=== PATIENT | male | born 1955 | race Caucasian/White ===

== ENCOUNTER 2020-06-26 12:54 | Emergency (ER) | payer SELFPAY ==
--- NOTE | 2020-06-26 12:56 | XR_ITS ---
WS: [id number] XR chest 1V portable [id number] REASON FOR EXAM: cehst pain FINDINGS: The heart and mediastinum are within normal limits. No active pulmonary parenchymal or pleural disease is noted. There is blunting of the right costophrenic angle with flattening of the left hemidiaphragmatic conto ur. The bony thorax is intact. XR/XR chest 1V portable [id number] IMPRESSION: No acute chest abnormality is identified. The blunted right costophrenic angle with flattening of the left hemidiaphragm is felt to be chronic.
--- NOTE | 2020-06-26 12:57 | ECG_ITS ---
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 Measurements Intervals [place] Rate: 76 P: 75 CO: 205 QRS: 194 QRSD: 134 T: 60 QT: 406 QTc: 459 Interpretive Statements SINUS RHYTHM WITH OCCASIONAL SUPRAVENTRICULAR PREMATURE COMPLEXES MARKED RIGHT AXIS DEVIATION [QRS AXIS > 100] RIGHT BUNDLE BRANCH BLOCK [120+ ms QRS DURATION, UPRIGHT V1, 40+ ms S IN I/aVL/V4/V5/V6] No previous ECG available for comparison Electronically Signed On 06-26-2020 20:55:34 CDT by Idris Davidson M.D. [id number]
[2020-06-26 13:23] VITALS: BP 128/91; PULSE 77; RESP 16; TEMP 36.4; O2SAT 98; BMI 21.9
[2020-06-26 13:27] LABS: Basophils # 0.1 10^3/uL (0.0-0.1); Eosinophils # 0.4 10^3/uL (0.0-0.8); Eosinophils % 5.3 %; Hemoglobin 14.8 g/dL (11.7-16.6); Lymphocytes # 2.2 10^3/uL (0.8-4.8); Lymphocytes % 33.7 %; Mean Corpuscular HGB Conc 33.6 g/dL (30.0-36.0); Mean Corpuscular Hemoglobin 32.7 pg (28.0-34.0); Mean Corpuscular Volume 97.3 fL (80-94); Mean Platelet Volume 10.6 fL (7.4-10.4); Monocytes # 0.7 10^3/uL (0.2-0.9); Monocytes % 10.2 %; Neutrophils # 3.19 10^3/uL (1.8-7.7); Neutrophils % 47.9 %; Nucleated Red Blood Cells % 0 %; Platelet Count 236 10^3/cmm (130-400); Red Blood Count 4.52 10^6/uL (4.1-5.3); Red Cell Distribution Width 16.5 % (12.1-15.1); White Blood Count 6.7 10^3/uL (4.0-10.0)
[2020-06-26 14:30] LABS: Alanine Aminotransferase 19 U/L (0-41); Albumin Level 4.9 g/dL (3.5-5.2); Alkaline Phosphatase 62 IU/L (40-130); Aspartate Amino Transferase 22 U/L (0-40); Blood Urea Nitrogen 14 mg/dL (8-23); Calcium 9.7 mg/dL (8.5-10.5); Carbon Dioxide 25 mmol/L (22-29); Chloride 96 mmol/L (98-107); Globulin 2.8 g/dL (1.3-4.6); Glomerular Filtration Rate 75.5 mL/min (90-130); Glucose 101 mg/dL (65-115); Osmolality Calculated 279 mOsm/kg (285-295); Sodium 134 mmol/L (136-145); Total Bilirubin 0.6 mg/dL (0.15-1.2); Total Protein 7.7 g/dL (6.6-8.7); Troponin(5th) Baseline 104 ng/L (0-15)
[2020-06-26 14:31] LABS: Anion Gap 17.6 (5-19); Potassium 4.6 mmol/L (3.5-5.1)
--- NOTE | 2020-06-26 16:41 | W.ED.CHESTPA ---
HPI - Chest Pain General: Chief Complaint: Chest Pain Stated Complaint: cp Time Seen by Provider: 06/26/20 13:25 History of Present Illness: HPI narrative: This patient is a 65-year-old male who presents with an episode of chest pain. He said it started about 1230 and lasted about 20 to 30 minutes. On my evaluation he is pain-free. He said that he believes he had a heart attack. He thinks he may have had heart attacks before but is never sought medical attention. He denies medical history but also has not seen a doctor in a long time. He smokes several packs a day. He is not sure if he is ever been told he had high blood pressure high cholesterol. He is not sure about his family history. MD complaint: chest pain Pertinent past history: coronary artery disease Onset (ago): hour(s) (1) Timing of current episode: constant Onset: during rest Pain location: substernal and left chest Pain radiation: left arm Severity: severe Quality: aching and heaviness Relieving factors: nothing Exacerbating factors: nothing Associated symptoms: Reports diaphoresis and dyspnea; Deny abdominal pain, nausea or vomiting Review of Systems General: Reports: 10 or more systems reviewed and unremarkable except in HPI and below Const: Reports: diaphoresis Eyes: Denies: change in vision ENMT: Denies: odynophagia Card: Reports: chest pain; Denies: swelling of feet/ankles Resp: Reports: dyspnea GI: Denies: abdominal pain, nausea or vomiting : Denies: flank pain Musc: Denies: neck pain or back pain Skin/Breast: Denies: rash Neuro: Denies: headache(s), numbness in extremities or weakness in extremities Jeffrey/Lymph: Denies: easy bruising or easy bleeding [facility] ED PFSH: Social History Smoking and tobacco status: heavy tobacco smoker cigarettes Packs smoked per day: 1 Alcohol intake: never Substance/Drug Use: current Substance/Drug use frequency: daily Substance/Drug use type: Marijuana Physical Exam Const: COMMON NORMALS: no acute distress, patient oriented x3, no limitations and alert GENERAL APPEARANCE: cooperative and comfortable HENMT: HEAD & SCALP: normal to inspection FACE & SINUS: normal facial exam Eye: GENERAL EYE: appearance normal, both eyes and all related structures Neck/C-Spine: COMMON NORMALS: supple, no meningeal signs and no JVD Chest: COMMONS NORMALS: normal inspection of the chest Resp: COMMON NORMALS: normal respiratory effort, No use of accessory muscles and clear to auscultation bilaterally AUSCULTATION: clear to auscultation bilaterally Cardio: COMMON NORMALS: no JVD, regular rate, regular rhythm and No murmurs present (Cardio) RATE: regular rate RHYTHM: regular rhythm GI: COMMON NORMALS: Normal to inspection, nondistended, normoactive bowel sounds present, Soft to palpation and non-tender INSPECTION: Yes normal to inspection AUSCULTATION: Yes normoactive bowel sounds PALPATION: Yes Soft to palpation Back/Pelvis: COMMON NORMALS: thoracic and lumbar spine normal to inspection Extremity: COMMON NORMALS: normal to inspection Neuro: COMMON NORMALS: patient oriented x3, moves all extremities, no focal motor deficits and no sensory deficits noted SENSORIUM/ORIENTATION: Yes alert MENINGEAL SIGNS: Yes no meningeal signs Psych: COMMON NORMALS: mental status grossly normal, cooperative and normal affect Skin: COMMON NORMALS: no rashes or lesions noted and turgor normal GENERAL SKIN EXAM: no rashes or lesions noted and turgor normal Course ED course: Patient with a right bundle branch block on his EKG. There is no obvious acute ischemia. It is a concerning EKG however. His initial troponin was elevated over 100. His second troponin was over 200. Soon as I had evaluated the patient, he told me that he was not staying in the hospital. He agreed to wait for the work-up. When I went back and talked to him about the troponin elevation he expressed understanding that I was telling him he had had a heart damage and a heart attack. He understands that he needs to have a cardiac cath and have his arteries cleaned out . He refuses to stay in the hospital tonight. I explained to him that he is at high risk for sudden because of his recent MO. He understands that and is willing to accept that risk. I spent quite some time discussing this with him and he is steadfast that he will not stay in the hospital. He does request that I give him referral to the dispatcher service chief so that he can have a cath. He also says that he is going to stop smoking. He volunteered that on his own. He also agreed to take an aspirin daily. He understands that he is welcome to return to the ED at any time if he wishes to have further treatment. He also understands to return immediately if he has more chest pain. Vital Signs: Vital signs: Vital Signs Temperature 97.5 F L 06/26/20 13:23 Pulse Rate 77 06/26/20 13:23 Respiratory Rate 16 06/26/20 13:23 Blood Pressure 128/91 06/26/20 13:23 Pulse Oximetry 98 06/26/20 13:23 MDM - Chest Pain Lab Data: Labs: Lab Results 06/26/20 06/26/20 06/26/20 Range/Units 13:05 13:05 13:05 WBC 6.7 (4.0-10.0) 10^3/ uL RBC 4.52 (4.1-5.3) 10^6/u L Hgb 14.8 (11.7-16.6) g/dL Hct 44.0 (42.0-52.0) % MCV 97.3 H (80-94) fL MCH 32.7 (28.0-34.0) pg MCHC 33.6 (30.0-36.0) g/dL RDW 16.5 H (12.1-15.1) % Plt Count 236 (130-400) 10^3/c mm MPV 10.6 H (7.4-10.4) fL Neut % (Auto) 47.9 % Lymph % (Auto) 33.7 % [place] % (Auto) 10.2 % Eos % (Auto) 5.3 % Baso % (Auto) 2.0 % Neut # (Auto) 3.19 (1.8-7.7) 10^3/u L Lymph # (Auto) 2.2 (0.8-4.8) 10^3/u L [place] # (Auto) 0.7 (0.2-0.9) 10^3/u L Eos # (Auto) 0.4 (0.0-0.8) 10^3/u L Baso # (Auto) 0.1 (0.0-0.1) 10^3/u L Nucleated RBC % (a uto) 0 % Nucleated RBCs # 0.0 /100WBC Sodium Cancelled Potassium Cancelled Chloride Cancelled Carbon Dioxide Cancelled Anion Gap Cancelled BUN Cancelled Creatinine Cancelled GFR Calculation Cancelled Glucose Cancelled Calculated Osmolal ity Cancelled Calcium Cancelled Total Bilirubin Cancelled AST Cancelled ALT Cancelled Alkaline Phosphata se Cancelled Troponin T Baselin e Cancelled Troponin T 120 [address] [place] (0-15) ng/L Delta Troponin T (0-10) ABS# Total Protein Cancelled Albumin Cancelled Globulin Cancelled 06/26/20 06/26/20 06/26/20 Range/Units 13:55 13:55 16:05 WBC (4.0-10.0) 10^3/ uL RBC (4.1-5.3) 10^6/u L Hgb (11.7-16.6) g/dL Hct (42.0-52.0) % MCV (80-94) fL MCH (28.0-34.0) pg MCHC (30.0-36.0) g/dL RDW (12.1-15.1) % Plt Count (130-400) 10^3/c mm MPV (7.4-10.4) fL Neut % (Auto) % Lymph % (Auto) % [place] % (Auto) % Eos % (Auto) % Baso % (Auto) % Neut # (Auto) (1.8-7.7) 10^3/u L Lymph # (Auto) (0.8-4.8) 10^3/u L [place] # (Auto) (0.2-0.9) 10^3/u L Eos # (Auto) (0.0-0.8) 10^3/u L Baso # (Auto) (0.0-0.1) 10^3/u L Nucleated RBC % (a uto) % Nucleated RBCs # /100WBC Sodium 134 L Potassium 4.6 Chloride 96 L Carbon Dioxide 25 Anion Gap 17.6 BUN 14 Creatinine 1.0 GFR Calculation 75.5 L Glucose 101 Calculated Osmolal ity 279 L Calcium 9.7 Total Bilirubin 0.6 AST 22 ALT 19 Alkaline Phosphata se 62 Troponin T Baselin e 104 H* Troponin T 120 Min [place] 234.8 H (0-15) ng/L Delta Troponin T 130.8 H* (0-10) ABS# Total Protein 7.7 Albumin 4.9 Globulin 2.8 Discharge Plan Discharge Patient Disposition: Left Against Medical Advice Clinical Impression: Acute non-ST elevation myocardial infarction (NSTEMI) Chest pain Qualifiers: Chest pain type: unspecified Qualified Code(s): R07.9 - Chest pain, unspecified Condition: Stable Prescriptions: New aspirin 325 mg tablet 325 mg PO DAILY Qty: 30 RF: 0 Referrals: Mansoor Sanabria M.D [Physician] - 1-3 days (follow up NSTEMI with AMA from ED) Discharge Diet: Usual diet Discharge Activity: Limit activity as instructed Patient Instructions: Myocardial Infarction (GEN) Activity Restrictions/Additional Instructions: Return to the emergency department at any time if you wish to have further treatment and evaluation. Return as well if any further episodes of chest pain. You should get a call tomorrow to set up an appointment with the dispatcher service chief. If you do not hear from us tomorrow please call us. You did have a heart attack today and are at high risk for life-threatening complications in the next few days. You are also likely to have further heart attacks in the future without appropriate treatment. Discharge Date/Time: 06/26/20 17:41 Coding Level of Care Code ED Books Binder for Concepcion Fwd Exam Comprehensive
[2020-06-26 16:42] LABS: Troponin 5 2HR 234.8 ng/L (0-15)
[2020-06-26 16:43] LABS: Troponin 5 2HR Delta 130.8 ABS# (0-10)
[2020-06-26] MEDS: aspirin 81 mg Chew Tablet 324 MG PO (17:31)
--- NOTE | 2020-06-26 17:52 | PC.NURSE ---
Pt has prescription not given to him at time of discharge. Attempted to contact pt at phone number in chart and number is no longer in service. Attempted to call next of kin contact with no answer.
--- NOTE | 2020-06-26 18:57 | ECG_ITS ---
[facility] Test Date: 2020-06-26 Pat Name: Renaldo Lawson Department: Room: Gender: Male House Manager: : 1955 Requested By: Ivan Kirkpatrick Order Number: [id number] Gael MD: Idris Davidson M.D. Measurements Intervals [place] Rate: 66 P: 71 ID: [id number] QRS: 178 QRSD: 144 T: -34 QT: 386 QTc: 405 Interpretive Statements SINUS RHYTHM RIGHT BUNDLE BRANCH BLOCK [120+ ms QRS DURATION, UPRIGHT V1, 40+ ms S IN I/aVL/V4/V5/V6] LEFT POSTERIOR FASCICULAR BLOCK [QRS AXIS > 109, INFERIOR Q] MODERATE T-WAVE ABNORMALITY, CONSIDER INFERIOR ISCHEMIA [-0.1+ mV T WAVE IN II/aVF] Compared to ECG 06/26/2020 13:12:21 Left posterior fascicular block now present T-wave abnormality now present Possible ischemia now present Right-axis deviation no longer present Electronically Signed On 06-27-2020 21:37:46 CDT by Idris Davidson M.D. [id number]
--- NOTE | 2020-06-27 09:23 | DCPLANNER ---
support manager had message to schedule a follow up appointment for patient with [facility]. support manager called [facility], spoke with Daisy, a follow up appointment was scheduled for Friday, July 10, 2020 at 2:[address] Sanabria. support manager called and spoke with patients brother, gave him appointment information. Patient does not have a phone, brother will give patient the appointment information.
--- NOTE | 2020-07-12 07:52 | DCPLANNER ---
Patients appointment rescheduled to June at 2:30 at [facility].
--- NOTE | 2020-07-20 11:35 | DCPLANNER ---
Patient had a follow up appointment scheduled for 07.19.20 with [facility] - patient did attend appointment.
== END 2020-06-26 17:41 | disposition left against medical advice (07) ==
PROVIDERS: Family Medicine; Emergency Provider Emergency Medicine
DX: I21.4 Non-ST elevation (NSTEMI) myocardial infarction (principal); Z53.21 Procedure and treatment not carried out due to patient leaving prior to being seen by health care provider; F17.210 Nicotine dependence, cigarettes, uncomplicated
CPT/HCPCS: 12345; 36415; 71045; 80053; 84484; 85025; 93005; 99282; 99284

== ENCOUNTER 2023-03-26 23:14 | Inpatient (IN) | payer MEDICARE, MEDICAID, SELFPAY ==
[2023-03-26 23:22] VITALS: BP 98/67; PULSE 101; RESP 17; TEMP 36.7; O2SAT 92
--- NOTE | 2023-03-26 23:29 | W.ED.CHESTPA ---
HPI - Chest Pain General: Chief Complaint: ER Hold Stated Complaint: CP Time Seen by Provider: 03/26/23 23:29 History of Present Illness: 68-year-old gentleman presents with chest pain. Does have cardiac history including MN. Denies frequent history of chest pain. Laydown approximately 1 hour prior to arrival and had onset of pain. Left anterior chest with radiation down the left arm. Associated shortness of breath and mild nausea/diaphoresis. EMS administered aspirin. Currently pain is resolved with nitro x1. No other specific changes in health, exacerbating, or alleviating factors identified. Onset (ago): hour(s) Onset: during rest Pain location: substernal and left chest Severity: moderate Relieving factors: nitroglycerin Associated symptoms: Reports diaphoresis, dyspnea and nausea Review of Systems General: Reports: 10 or more systems reviewed and unremarkable except in HPI and below Const: Reports: diaphoresis Resp: Reports: dyspnea GI: Reports: nausea PFSH ED PFSH: Medical History (Updated 04/08/23 @ 11:03 by Alex Frederick MD) Non-ST elevation MN (NSTEMI) Family History Brother CAD (coronary artery disease) Social History Smoking and tobacco status: heavy tobacco smoker cigarettes Packs smoked per day: 1 Alcohol intake: never Substance/Drug Use: current Substance/Drug use frequency: daily Physical Exam Const: COMMON NORMALS: alert GENERAL APPEARANCE: cooperative and well developed HENMT: COMMON NORMALS: normocephalic and atraumatic HEAD & SCALP: normocephalic and atraumatic Eye: COMMON NORMALS: conjunctivae normal CONJUNCTIVA: Yes conjunctivae normal SCLERA: sclerae normal Neck/C-Spine: COMMON NORMALS: supple GENERAL: Yes trachea midline Resp: COMMON NORMALS: clear to auscultation bilaterally EFFORT & INSPECTION: Yes able to speak in complete sentences AUSCULTATION: clear to auscultation bilaterally Cardio: COMMON NORMALS: regular rate and regular rhythm RATE: regular rate RHYTHM: regular rhythm GI: COMMON NORMALS: Soft to palpation PALPATION: Yes Soft to palpation and No Tenderness to palpation present (GI) Extremity: GENERAL: Yes normal exam except as noted and No edema Neuro: COMMON NORMALS: moves all extremities SENSORIUM/ORIENTATION: Yes alert and No Orientation impaired Psych: COMMON NORMALS: mental status grossly normal and Normal thought process present THOUGHT PROCESS: Normal thought process present Course Vital Signs: Vital signs: Vital Signs Temperature 98.0 F 03/26/23 23:22 Pulse Rate 56 L 03/27/23 18:16 Respiratory Rate 14 03/27/23 18:16 Blood Pressure 111/76 03/27/23 18:16 Pulse Oximetry 92 03/27/23 08:00 Oxygen Delivery Me thod Room Air 03/27/23 08:00 MDM - Chest Pain Medical Decision Making 68-year-old gentleman presenting with typical chest pain concerning for cardiac etiology. Improved with prehospital treatment including nitro. Was given prehospital aspirin. Exam as above. Nontoxic. EKG demonstrates sinus rhythm with right bundle branch block and first-degree AV block. No STEMI. Labs with no leukocytosis, normal hemoglobin and platelet count. Metabolic panel without significant electrolyte derangement. Minimal transaminitis of uncertain etiology. Initial troponin is elevated with positive range 2-hour delta. Chest x-ray with no lobar consolidation or pneumothorax. Patient treated with Lovenox. Remained pain-free. The results of ED evaluation were discussed with the patient including plan for admission due to requirement for level of care not available if discharged to prevent significant worsening/deterioration. Patient agreeable with plan. Discussed with hospitalist service who was agreeable to admit patient. Medical Records I reviewed the patient's medical records. Lab Data I reviewed the patient's lab results. 03/26/23 22:50 03/26/23 22:50 Radiology Impressions Chest X-Ray 03/26/23 23:30 IMPRESSION: Stable COPD . Laboratory Results WBC 6.3 10^3/uL (4.0-10.0) 03/26/23 22:50 RBC 4.26 10^6/uL (4.1-5.3) 03/26/23 22:50 Hgb 14.5 g/dL (11.7-16.6) 03/26/23 22:50 Hct 41.4 % (42.0-52.0) L 03/26/23 22:50 MCV 97.2 fl (80-94) H 03/26/23 22:50 MCH 34.0 pg (28.0-34.0) 03/26/23 22:50 MCHC 35.0 g/dL (30.0-36.0) 03/26/23 22:50 RDW 16.7 % (12.1-15.1) H 03/26/23 22:50 Plt Count 225 10^3/cmm (130-400) 03/26/23 22:50 MPV 10.9 fL (7.4-10.4) H 03/26/23 22:50 Neut % (Auto) 44.1 % 03/26/23 22:50 Lymph % (Auto) 37.3 % 03/26/23 22:50 [place] % (Auto) 9.5 % 03/26/23 22:50 Eos % (Auto) 6.0 % 03/26/23 22:50 Baso % (Auto) 2.2 % 03/26/23 22:50 Neut # (Auto) 2.78 10^3/uL (1.8-7.7) 03/26/23 22:50 Lymph # (Auto) 2.4 10^3/uL (0.8-4.8) 03/26/23 22:50 [place] # (Auto) 0.6 10^3/uL (0.2-0.9) 03/26/23 22:50 Eos # (Auto) 0.4 10^3/uL (0.0-0.8) 03/26/23 22:50 Baso # (Auto) 0.1 10^3/uL (0.0-0.1) 03/26/23 22:50 Nucleated RBC % (auto) 0 % 03/26/23 22:50 Nucleated RBCs # 0.0 /100WBC 03/26/23 22:50 Sodium 136 mmol/L (136-145) 03/26/23 22:50 Potassium 4.0 mmol/L (3.5-5.1) 03/26/23 22:50 Chloride 97 mmol/L (98-107) L 03/26/23 22:50 Carbon Dioxide 27 mmol/L (22-29) 03/26/23 22:50 Anion Gap 16.0 (5-19) 03/26/23 22:50 BUN 14 mg/dL (8-23) 03/26/23 22:50 Creatinine 1.2 mg/dL (0.7-1.2) 03/26/23 22:50 GFR Calculation 60.6 mL/min (90-130) L 03/26/23 22:50 Glucose 94 mg/dL (65-115) 03/26/23 22:50 Estimat Average Glucose 120 03/26/23 22:50 Hemoglobin A1c 5.8 % (4.0-6.0) 03/26/23 22:50 Calculated Osmolality 282 mOsm/kg (285-295) L 03/26/23 22:50 Calcium 10.0 mg/dL (8.5-10.5) 03/26/23 22:50 Total Bilirubin 0.4 mg/dL (0.15-1.2) 03/26/23 22:50 AST 53 U/L (0-40) H 03/26/23 22:50 ALT 48 U/L (0-41) H 03/26/23 22:50 Alkaline Phosphatase 61 U/L (40-130) 03/26/23 22:50 Troponin T Baseline 61 ng/L (0-15) H 03/26/23 22:50 Troponin T 120 Minute 286.4 ng/L (0-15) H 03/27/23 01:38 Delta Troponin T 225.4 ABS# (0-10) H* 03/27/23 01:38 NT-Pro-B Natriuret Pep 70 pg/mL (0-125) 03/27/23 01:38 Total Protein 7.4 g/dL (6.6-8.7) 03/26/23 22:50 Albumin 5.0 g/dL (3.5-5.2) 03/26/23 22:50 Globulin 2.4 g/dL (1.3-4.6) 03/26/23 22:50 Triglycerides 222 mg/dL (0-150) H 03/27/23 01:38 Cholesterol 338 mg/dL (0-200) H 03/27/23 01:38 LDL Cholesterol, Calc 246 mg/dL (50-129) H 03/27/23 01:38 HDL Cholesterol 48 mg/dL (60-100) L 03/27/23 01:38 LDL/HDL Ratio 5.13 RATIO (0.00-3.22) H 03/27/23 01:38 Cholesterol/HDL Ratio 7.04 mg/dL (1.0-5.00) H 03/27/23 01:38 Lipase 20 U/L (13-60) 03/26/23 22:50 TSH 91.83 uIU/mL (0.27-4.20) H 03/27/23 01:38 Free T4 < 0.10 ng/dL (0.82-1.77) L 03/27/23 01:38 Free T3 < 0.4 PG/ML (2.0-4.4) L 03/27/23 01:38 Discharge Plan Discharge Patient Disposition: Admitted As Inpatient Admit Provider: Janice Carlin Clinical Impression: Non-ST elevation MN (NSTEMI) Condition: Stable Coding Level of Care Code ED Director Of Accounts Payable for Concepcion Lamas
--- NOTE | 2023-03-26 23:30 | XRR_ITS ---
PROCEDURE INFORMATION: Exam: XR Chest Exam date and time: 03/26/2023 11:50 PM Age: 68 years old Clinical indication: Pain; Chest pressure; Additional info: Cp TECHNIQUE: Imaging protocol: Radiologic exam of the chest. Views: 1 view. COMPARISON: CR XR chest 1V portable [id number] 06/26/2020 1:20 PM FINDINGS: Lungs: Stable COPD . Pleural spaces: Unremarkable. No pleural effusion. No pneumothorax. Heart/Mediastinum: Unremarkable. No cardiomegaly. Bones/joints: Levoscoliosis. XR/XR chest 1V portable [id number] IMPRESSION: Stable COPD .
--- NOTE | 2023-03-26 23:30 | ECG_ITS ---
[facility] Test Date: 2023-03-27 Pat Name: Renaldo Lawson Department: Room: EDIP Gender: Male Hospice Chaplain: : 1955 Requested By: Alex Frederick Order Number: [id number] Gael MD: Mansoor Sanabria M.D. Measurements Intervals [place] Rate: 63 P: 84 UT: 173 QRS: 172 QRSD: 140 T: 46 QT: 418 QTc: 431 Interpretive Statements SINUS RHYTHM RIGHT BUNDLE BRANCH BLOCK [120+ ms QRS DURATION, UPRIGHT V1, 40+ ms S IN I/aVL/V4/V5/V6] LEFT POSTERIOR FASCICULAR BLOCK [QRS AXIS > 109, INFERIOR Q] SEPTAL MYOCARDIAL INFARCTION , PROBABLY OLD [40+ ms Q WAVE IN V1/V2] Compared to ECG 03/27/2023 01:32:20 Myocardial infarct finding now present Electronically Signed On 03-27-2023 7:57:35 CDT by Mansoor Sanabria M.D. [id number]
--- NOTE | 2023-03-26 23:40 | PC.NURSE ---
PLACED PATIENT ON BEDSIDE CARDIAC MONITORING.
[2023-03-26 23:43] LABS: Basophils # 0.1 10^3/uL (0.0-0.1); Basophils % 2.2 %; Eosinophils # 0.4 10^3/uL (0.0-0.8); Hematocrit 41.4 % (42.0-52.0); Hemoglobin 14.5 g/dL (11.7-16.6); Lymphocytes # 2.4 10^3/uL (0.8-4.8); Lymphocytes % 37.3 %; Mean Corpuscular Volume 97.2 fl (80-94); Mean Platelet Volume 10.9 fL (7.4-10.4); Monocytes # 0.6 10^3/uL (0.2-0.9); Monocytes % 9.5 %; Neutrophils # 2.78 10^3/uL (1.8-7.7); Neutrophils % 44.1 %; Nucleated Red Blood Cells % 0 %; Platelet Count 225 10^3/cmm (130-400); Red Blood Count 4.26 10^6/uL (4.1-5.3); Red Cell Distribution Width 16.7 % (12.1-15.1); White Blood Count 6.3 10^3/uL (4.0-10.0)
[2023-03-26 23:48] LABS: Troponin(5th) Baseline 61 ng/L (0-15)
[2023-03-26 23:57] LABS: Alanine Aminotransferase 48 U/L (0-41); Alkaline Phosphatase 61 U/L (40-130); Aspartate Amino Transferase 53 U/L (0-40); Blood Urea Nitrogen 14 mg/dL (8-23); Carbon Dioxide 27 mmol/L (22-29); Chloride 97 mmol/L (98-107); Globulin 2.4 g/dL (1.3-4.6); Glomerular Filtration Rate 60.6 mL/min (90-130); Glucose 94 mg/dL (65-115); Lipase 20 U/L (13-60); NT Pro B Type Natriuretic Pept 51 pg/mL (0-125); Osmolality Calculated 282 mOsm/kg (285-295); Sodium 136 mmol/L (136-145); Total Bilirubin 0.4 mg/dL (0.15-1.2); Total Protein 7.4 g/dL (6.6-8.7)
[2023-03-27] VITALS (33 sets, daily range): BP systolic 83–120; BP diastolic 55–86; PULSE 50–95; RESP 10–22; O2SAT 92–97
--- NOTE | 2023-03-27 01:32 | ECG_ITS ---
[facility] Test Date: 2023-03-27 Pat Name: Renaldo Lawson Department: Room: Gender: Male Soda Dispenser: : 1955 Requested By: Alex Frederick Order Number: [id number] Gael MD: Mansoor Sanabria M.D. Measurements Intervals [place] Rate: 65 P: 71 MA: 209 QRS: 162 QRSD: 146 T: 33 QT: 391 QTc: 409 Interpretive Statements SINUS RHYTHM RIGHT BUNDLE BRANCH BLOCK [120+ ms QRS DURATION, UPRIGHT V1, 40+ ms S IN I/aVL/V4/V5/V6] LEFT POSTERIOR FASCICULAR BLOCK [QRS AXIS > 109, INFERIOR Q] Compared to ECG 06/26/2020 16:25:18 T-wave abnormality no longer present Possible ischemia no longer present Electronically Signed On 03-27-2023 7:59:20 CDT by Mansoor Sanabria M.D. [id number]
[2023-03-27 02:03] LABS: Troponin 5 2HR 286.4 ng/L (0-15); Troponin 5 2HR Delta 225.4 ABS# (0-10)
[2023-03-27] MEDS: enoxaparin 60 mg/0.6 mL Syringe SUBCUT ×2 (02:11→14:35)
--- NOTE | 2023-03-27 02:27 | PM.HP ---
Providers/Chief Complaint Chief Complaint: CP History of Present Illness Renaldo Lawson is a 68 year old male with past medical history of NSTEMI, coronary artery disease who presented to the hospital today for complaint of chest pain. He states the pain started around 130 last night did not have any nausea vomiting associated with it but did have diaphoresis. He also felt short of breath. This is not willing to provide any detailed history at this time to me. He says he only takes aspirin at home. Patient is somewhat agitated. He states that no one is letting him sleep and everyone coming to the room saying that they want to examine him and talk to him. He is not very forthcoming with his story. He is a very poor historian. On review of records it seems that in 2019 he had an NSTEMI and was supposed to have a coronary angiogram done as an outpatient but I do not see any record of it at this time. He denies being on aspirin Plavix at home. He also told me he is never a candidate for an angiogram before for a stress test. He says his stress test is pretty much when we talk to him he gets stressed. ER course:On arrival to ER blood pressure 98/67, pulse 92, respiratory rate 17, temperature 98 saturating 92% on room air. Initial troponin 61 with 6-hour troponin 281 positive delta of 180. Creatinine 1.2, sodium 136, potassium 4.0, WBC 6.3, hemoglobin 14.5, platelets 225. EKG showed sinus rhythm with right bundle branch block and evidence of old anterior NJ. Medications/Allergies Home Medications Medication Instructions Recorded Confirmed Last Taken Type aspirin 325 mg tablet 325 mg PO DAILY #30 tabs 06/26/20 07/19/20 Unknown Rx Allergies Allergy/AdvReac Type Severity Reaction Status Date / Time No Known Allergies Allergy Verified 03/26/23 23:33 PFSH Acute PFSH: Medical History Non-ST elevation [place] (NSTEMI) Family History Brother CAD (coronary artery disease) Social History Smoking and tobacco status: heavy tobacco smoker cigarettes Packs smoked per day: 1 Alcohol intake: never Substance/Drug Use: current Substance/Drug use frequency: daily Vitals/I&O/Wt Last Vital Signs Temp 98.0 F 03/26/23 23:22 Pulse 55 L 03/27/23 02:17 Resp 15 03/27/23 02:17 BP 103/74 03/27/23 02:17 Pulse Ox 95 03/27/23 02:17 O2 Del Method Room Air 03/27/23 02:17 Weight last 48 hrs Weight 63.503 kg Physical Exam Narrative: General: Alert oriented x3, patient seen laying in bed in street clothes. Covered with a blanket. Not really wanting to be examined however after asking multiple times he agreed to lung auscultation and heart auscultation. HEENT: Normocephalic, atraumatic, EOMI, breathing comfortably on room air. Cardio: Regular rate rhythm, normal S1-S2, Respiratory: Mild rhonchi at bases. GI: Abdomen soft, nontender, nondistended, bowel sounds + Extremities: No edema bilateral lower extremities. Unable to fully examine since patient is not in a gown. He is quite agitated during examination as well. Data 03/26/23 22:50 03/26/23 22:50 A&P Assessment and plan (1) Non-ST elevation NJ (NSTEMI): (2) Tobacco abuse: (3) Coronary artery disease: Plan #NSTEMI #History of NSTEMI #Elevated troponins #Chronic smoker ? Positive delta troponin of 180. ? Presents with chest pain that apparently relieved with nitro. ? Check echocardiogram ? Consult cardiology. He will need an angiogram. I talked to him about this and he did not seem opposed to the idea. However he did state that he has never had a procedure like this before. Very poor historian. We will need to discuss with him in detail if he is willing to take dual antiplatelet therapy. Patient states he does not see any doctors and is only on aspirin at home. ? Check lipid profile, TSH, hemoglobin A1c ? Serial EKGs ? If chest pain recurs may consider nitro drip ? Start on aspirin Plavix atorvastatin ? I would hold off on beta-klaudia for now as heart rate is borderline low. ? Placed on therapeutic Lovenox. Full code SCDs, cover with therapeutic Lovenox for DVT prophylaxis Attestations Medical Necessity Statement*: >2 midnight stay for management of NSTEMI Diagnoses Non-ST elevation NJ (NSTEMI) I21.4 Tobacco abuse Z72.0 Coronary artery disease I25.10
--- NOTE | 2023-03-27 02:33 | USCV_ITS ---
Renaldo Lawson Age: 68 Gender: M : 1955 Exam Date: 03/27/2023 03:00 Ordering Phys: Janice Carlin MD Technologist: JANENE [place]am [place] [facility] [place] Indication: chest pain relieved by nitro. long-term smoker continues smoking. BP: 103 / 74 HR: 50 Rhythm: Sinus Technical Quality: Adequate MEASUREMENTS (Male / Female) Normal Values 2D ECHO LV Diastolic Diameter PLAX 3.8 cm 4.2 - 5.9 / 3.9 - 5.3 cm LV Systolic Diameter PLAX 2.4 cm IVS Diastolic Thickness 1.0 cm 0.6 - 1.0 / 0.6 - 0.9 cm IVS Systolic Thickness 1.5 cm LVPW Diastolic Thickness 1.0 cm 0.6 - 1.0 / 0.6 - 0.9 cm LVPW Systolic Thickness 1.1 cm LVOT Diameter 1.8 cm LV Ejection Fraction 2D Teich 67.3 % LV Ejection Fraction MOD 2C 62.8 % LV Ejection Fraction 2C AL 62.2 % LA Diameter 2.3 cm LA Width 3.4 cm LA Height 3.5 cm RA Width 3.7 cm RA Height 4.0 cm Aorta at Sinotubular Diameter 3.1 cm IVC Diameter 1.1 cm M-MODE Aortic Annulus Diameter 3.1 cm LA Ao Ratio MM 0.8 MV E Point Septal Separation 0.5 cm DOPPLER AV Peak Velocity 82.0 cm/s LVOT Peak Velocity 57.0 cm/s AV Area Cont Eq vti 1.6 cm squared AV Area Cont Eq pk 1.7 cm squared MV Area PHT 3.7 cm squared Mitral E to A Ratio 1.2 MV E' Velocity 34.0 cm/s Mitral E to MV E' Ratio 7.3 Mitral E to LV E' Lateral Ratio 6.5 Mitral E to LV E' Septal Ratio 8.5 TR Peak Velocity 219.7 cm/s TR Peak Gradient 19.3 mmHg TV Peak E Velocity 31.0 cm/s Right Atrial Pressure 5.0 mmHg Pulmonary Artery Systolic Pressu 24.3 mmHg PV Peak Velocity 66.0 cm/s RV Acceleration Time 0.1 s RV Ejection Time 0.3 s RV AcT/ET 0.4 FINDINGS Left Ventricle Left ventricle is normal in size. LV systolic function is normal with EF of 50 to 55%. Mild to moderate hypokinesis of the inferior wall Right Ventricle Mildly hypokinetic. Right Atrium Normal in size Left Atrium Normal in size Mitral Valve Structurally normal mitral valve. Mild mitral regurgitation. Aortic Valve Structurally normal aortic valve. No significant stenosis or regurgitation. Tricuspid Valve Trace tricuspid regurgitation. Insufficient TR jet to calculate RVSP Pulmonic Valve Not well visualized Pericardium Normal Aorta Normal in size IVC Appears to be normal CONCLUSIONS LV systolic function is normal with EF of 50-55%. Mild to moderate hypokinesis of the inferior wall Mildly hypokinetic right ventricle. Mild mitral regurgitation Trace tricuspid regurgitation. No comparison studies are available. Mansoor Sanabria MD (Electronically Signed) Final Date: 27 March 2023 08:47 S
[2023-03-27] MEDS: atorvastatin 40 mg Tablet 80 MG PO ×2 (03:02→09:46)
[2023-03-27 03:07] LABS: Chol HDL Ratio 7.04 mg/dL (1.0-5.00); Cholesterol 338 mg/dL (0-200); HDL Cholesterol 48 mg/dL (60-100); LDL Cholesterol Calculated 246 mg/dL (50-129); LDL HDL Ratio 5.13 RATIO (0.00-3.22); NT Pro B Type Natriuretic Pept 70 pg/mL (0-125); Thyroid Stimulating Hormone 91.83 uIU/mL (0.27-4.20); Triglycerides 222 mg/dL (0-150)
[2023-03-27 03:39] LABS: Estmated Average Glucose 120; Hemoglobin A1C 5.8 % (4.0-6.0)
[2023-03-27] MEDS: sodium chloride 0.9% 1,000 ML 75 ML IV (04:00)
[2023-03-27 05:38] LABS: Troponin 5 6HR 241.4 ng/L (0-15); Troponin 5 6HR Delta 180.4 ng/L (0-12)
--- NOTE | 2023-03-27 05:52 | ECG_ITS ---
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 Measurements Intervals [place] Rate: 61 P: 65 KS: 185 QRS: 175 QRSD: 150 T: 37 QT: 457 QTc: 461 Interpretive Statements SINUS RHYTHM RIGHT AXIS DEVIATION [QRS AXIS > 100] RIGHT BUNDLE BRANCH BLOCK [120+ ms QRS DURATION, UPRIGHT V1, 40+ ms S IN I/aVL/V4/V5/V6] SEPTAL MYOCARDIAL INFARCTION , OF INDETERMINATE AGE [40+ ms Q WAVE IN V1/V2] Compared to ECG 03/27/2023 03:32:07 Right-axis deviation now present Left posterior fascicular block no longer present Myocardial infarct finding still present Electronically Signed On 03-27-2023 7:59:00 CDT by Mansoor Sanabria M.D. [email or web address]
--- NOTE | 2023-03-27 07:00 | PM.CONSULT ---
Providers/Reason For Consult Consulting Physician/Specialty*: Mansoor Sanabria MD/ Cardiology Reason for Consult*: NSTEMI Requesting Physician: Dr Carlin Attending Physician: Janice Carlin MD History of Present Illness History of Present Illness Renaldo Lawson is a 68 year old male with past medical history of tobacco abuse, [place] however he did not have coronary angiogram presented to hospital with 1 hour of severe substernal chest pain.Had some diaphoresis with it. It has resolved overnight since administration of nitro. Initial troponin was 61 and trended up to 286 at 2 hours. He also has dyspnea on exertion. EKG shows normal sinus rhythm with RBBB. Review of Systems General: Reports: 10 or more systems reviewed and unremarkable except in HPI and below Const: Denies: fever(s), chills, body aches or fatigue Eyes: Denies: change in vision ENMT: Denies: odynophagia Card: Reports: chest pain and dyspnea on exertion; Denies: palpitations, irregular heart rhythm, swelling of feet/ankles, lightheadedness or orthopnea Resp: Reports: dyspnea and productive cough; Denies: non-productive cough GI: Denies: abdominal pain, nausea or vomiting : Denies: flank pain Musc: Reports: joint pain; Denies: neck pain or back pain Skin/Breast: Denies: rash or pruritus Neuro: Reports: weakness in extremities (bilateral lower); Denies: headache(s), numbness in extremities, dizziness or vertigo Psych: Denies: anxiety or depression Jeffrey/Lymph: Denies: easy bruising or easy bleeding Medications/Allergies Home Medications Medication Instructions Recorded Confirmed Last Taken Type aspirin 81 mg tablet,delayed 81 mg PO DAILY 03/27/23 03/27/23 Unknown History release Allergies Allergy/AdvReac Type Severity Reaction Status Date / Time No Known Allergies Allergy Verified 03/27/23 07:21 Current Medications Generic Name Dose Route Start Last Admin Trade Name Freq PRN Reason Stop Dose Admin Atorvastatin Calcium 80 mg 03/27/23 02:30 03/27/23 03:02 Atorvastatin 40 Mg Tablet PO 80 mg DAILY INDIRA Administration Sodium Chloride 1,000 mls @ 75 mls/hr 03/27/23 02:30 03/27/23 04:00 Sodium Chloride 0.9% IV 75 mls/hr .[id number] INDIRA Administration PFSH Acute PFSH: Medical History Non-ST elevation [place] (NSTEMI) Family History Brother CAD (coronary artery disease) Social History Smoking and tobacco status: heavy tobacco smoker cigarettes Packs smoked per day: 1 Alcohol intake: never Substance/Drug Use: current Substance/Drug use frequency: daily Vitals/I&O/Wt Last Vital Signs Temp 98.0 F 03/26/23 23:22 Pulse 61 03/27/23 05:00 Resp 19 H 03/27/23 05:00 BP 109/74 03/27/23 05:00 Pulse Ox 93 03/27/23 05:00 O2 Del Method Room Air 03/27/23 02:17 Weight last 48 hrs Weight 140 lb Physical Exam Narrative: GENERAL: Patient is alert, awake and oriented x3. [] NECK: No jugular vein distension. [] HEENT: No cyanosis. No icterus. No pallor. [] HEART: Regular S1 and S2. No murmur, rub or gallop. [] LUNGS: Clear to auscultate bilaterally. [] CENTRAL NERVOUS SYSTEM: Grossly nonfocal. [] EXTREMITIES: Lower extremities with 1+ edema bilaterally. Data 03/26/23 22:50 03/26/23 22:50 A&P Assessment and plan (1) Non-ST elevation [place] (NSTEMI): (2) Tobacco abuse: (3) Coronary artery disease: Plan Patient has presented with typical chest pain and troponin elevation consistent with NSTEMI. We will plan on coronary angiogram with possible percutaneous coronary intervention. Risks and benefits of the procedure have been discussed with the patient. NPO Order echocardiogram Thank you for involving us with the care of this patient. We will continue to follow. Please call with questions. Consult Attestations Medical Necessity Statement: Care expected to cross 2 midnights. Coding Level of Care Code Acute Code for [facility] Fwd Diagnoses Non-ST elevation [place] (NSTEMI) I21.4 Tobacco abuse Z72.0 Coronary artery disease I25.10
--- NOTE | 2023-03-27 07:22 | PC.PHAR ---
PT STATES HE TAKES NO PRESCRIPTION MEDICATION-NO MEDS SHOW UP ON EXT MED HISTORY PT STATES HE ONLY TAKES A 81MG ASPIRIN DAILY
--- NOTE | 2023-03-27 07:30 | XACV_ITS ---
Exam Room: [facility] Ht: 170 cm Wt: 64 kg BSA: 1.73 m2 Gender: Male : 1955 Exam Priority: Routine Procedure(s): Procedure Description: Diagnostic procedure Procedure Description: Left Heart Catheterization Procedure Description: Left ventriculography Procedure Description: Coronary Angiography Diagnostic Cath Status: Urgent Diagnostic Findings * INDICATION: NSTEMI. * Left Main: ostial 50% stenosis, PEGGY: 3 flow. * Mid Circumflex: severe 90% stenosis, PEGGY: 3 flow. * Proximal Left Anterior Descending to Mid Left Anterior Descending: subtotal occlusion, PEGGY: 2 flow. Gives rise to 2 diagonal arteries. Both have severe ostial disease.. * Mid Right Coronary Artery: critical 99% stenosis, PEGGY: 2 flow. * Proximal Right Coronary Artery: obstructive 70% stenosis, PEGGY: 2 flow. * Distal Right Coronary Artery: severe 90% stenosis, PEGGY: 2 flow. * Coronary angiography shows right dominance. Conclusions 1. Severe multivessel coronary artery disease. 2. Mild left ventricular systolic dysfunction. Ejection fraction of 40%. Recommendations * We will transfer patient to tertiary care center for complete revascularization with coronary artery bypass surgery. * Continue aspirin and anticoagulation. Interventional RX Recommendation: CABG Diagnostic RX Recommendation: CABG Anticoagulation: Heparin Ventriculography Ejection Fraction: 40.0 % Pressures Phase:Rest AO : 110 / 94 ( 103 ) @ 9:09:00 AM 85 / 60 ( 70 ) @ 9:19:00 AM 89 / 60 ( 72 ) @ 9:19:00 AM LV : 96 / -6 / 10 @ 9:18:00 AM 98 / -5 / 12 @ 9:19:00 AM 98 / -4 / 14 @ 9:19:00 AM Valves Phase:DefaultPhase AV : 12.0 @ 8:27:03 AM 12.0 @ 8:27:03 AM AV Mean Gradient: 14.0 @ 8:27:03 AM 14.0 @ 8:27:03 AM Clinical Evaluation EBL: 5mL-10mL Procedural Details Procedure Consent Obtained. Admit Source: Emergency department. Pre-Procedure Time Out. Identified patient by full name and date of as verbalized by the patient/guarantor. Does the consent match the physician's order: Yes. Accurate & Complete Informed Consent: Yes. Inpatient/Outpatient History & Physical on Chart: Yes. If H&P is completed, is and addenduem needed: N/A; If yes, is the addendum complete: N/A. Visualize and Verify Site with Patient/Guarantor: N/A. Relevant Radiology Images available: N/A. Pre-op teaching completed and patient verbalized understanding. The risks, benefits, and alternatives of sedation and/or procedure were discussed by physician. The patient agrees to continue. Procedure started. [facility] Clinical Fraility Score: 4: Vulnerable. Pretzel Cooker Indications: Worsening Angina. Chest Pain Symptom Assessment: Typical Angina Symptoms. Cardiovascular Instability: Yes, if yes, Persistant Ischemic Symptoms. Correct patient, site and procedure confirmed by cath team. Current diagnosis: NSTEMI. PERRLA. Strong, equal hand lead generation representative bilaterally. Lungs clear x 5 lobes. IV Site on Arrival: 18 gauge in the left anticubital. IV Fluids: 0.9% NaCl at KVO. 0 mL infused prior to director of cardiac cath lab. Pre Procedural Pulses: right radial was 2+. Pre Procedural Pulses: bilateral dorsalis pedis was 1+. Oxygen started at 2liters/min via nasal canula. right groin was prepped with chloroprep then draped in the usual sterile fashion. right radial was prepped with chloroprep then draped in the usual sterile fashion. Physician notified. Baseline sample Acquired. HR: 91 BPM. Physician arrived. Physician scrubbed in. Immediate Pre-Procedure Time Out. Correct Patient: Yes; Correct Procedure: Yes; Correct Site: Yes; Correct Patient Position: Yes; Correct Supplies: Yes; Dried Flammable Prep: Yes; Blood Products Available: N/A;. Lidocaine 1% infiltrated to the right radial. Arterial access obtained. A 5 malawian TIG catheter in over wire. Multiple views taken of left coronary artery. Catheter redirected to the RCA. Catheter removed over the exchange wire. A 5 malawian JR4 catheter in over wire. Multiple views taken of right coronary artery. Catheter removed over the exchange wire. A 5 malawian Angled Pig catheter in over wire. Pigtail advanced across the left ventricle. EDP Sample taken: LV 96/-7,10; HR: 65 BPM; SpO2: 94%. LV gram performed in SILVA @ 10 mL/second for a total of 30 mL. EDP Sample taken: LV 98/-6,12; HR: 66 BPM; SpO2: 94%. Pullback taken: LV 98/-5,14; AO 85/60(70); Mean: 14mmHg, Peak to Peak: 12mmHg, SEP: 9sec/min; HR: 66 BPM; SpO2: 94%. Catheter out. Physician review of cine films. Physician scrubbed out. A TR Band was successful obtaining hemostatsis at the Right Radial artery insertion site. Post Procedure: Pulses reassessed and unchanged. PERRLA. Strong, equal hand lead generation representative bilaterally. No VTE prophylaxis required. Medication's Wasted: Lidocaine 1% = 1 mL. Medication's Wasted: Nitro = 49.8 mg. Medication's Wasted: Heparin = 1000 u. Medication's Wasted: Other = Fentanyl 75 mcg. Total IV fluids: 30 mL. Complications: none. Estimated blood loss: 5mL-10mL. Responsiveness - Normal response to verbal stimuli; alert and oriented, PERRLA. Airway - Unaffected, no intervention required; spontaneous ventilation. Circulation: W/N/L, pulses unchanged. Nausea/Vomiting: No. Procedure completed. Post-op diagnosis: Severe three vessell CAD. Patient transferred by wheelchair to 1st floor. Vital chart was stopped. Access Site Site: Right Radial artery Sheath Size: 6 Fr Hemostasis Method: TR Band Hemostasis Success: Successful Procedure Medications Start: 8:02 AM Stop: 8:02 AM Medication: Versed Amount: 1 mg Route: I.V. Start: 8:02 AM Stop: 8:02 AM Medication: Fentanyl Amount: 25 mcg Route: I.V. Start: 8:06 AM Stop: 8:06 AM Medication: Nitrogylcerin Amount: 200 mcg Route: I.A. Start: 8:14 AM Stop: 8:14 AM Medication: Versed Amount: 1 mg Route: I.V. I, the attending physician, have reviewed and verified all procedure medications. Yes, all medications given per verbal order History/Risk Factors Hypertension: No Dyslipidemia: No Peripheral Arterial Disease (PAD): No Myocardial Infarction (MD): Yes Obesity: No Renal Disease: No Prior Interventions PCI: No CABG: No Valve Surgery: No Report Signatures Finalized by Mansoor Sanabria MD on 03/27/2023 04:09 PM
--- NOTE | 2023-03-27 07:52 | W.PM.OPSUD ---
Surgery/Procedure H&P Update DATE OF PROCEDURE: March 27, 2023 DATE H&P PERFORMED: 03/27/23 H&P UPDATE INFORMATION: I have reviewed H&P completed within last 30 days, I have examined patient prior to procedure and No changes to prior documentation PREOP DIAGNOSIS: NSTEMI PRIMARY INDICATION FOR PROCEDURE: NSTEMI PLANNED PROCEDURE: Left heart cath with possible percutaneous coronary intervention PATIENT REASSESSED PRIOR TO SEDATION, WITH NO CHANGE NOTED: Yes PHYSICAL EXAM: alert, oriented x 3, clear to auscultation bilaterally and regular rate & rhythm AIRWAY EVAL/ANESTHESIA PLAN: normal airway, ASA III, Local Anesthesia, Risks, benefits & alternatives of sedation and/or procedure discussed and Patient agrees to continue as planned ADDITIONAL INFORMATION: Moderate sedation
--- NOTE | 2023-03-27 07:52 | PC.NURSE ---
Patient assisted to label folder with label folder staff. Per Aleida Dhaliwal RN patient will not return to ER, admitted to ICU.
[2023-03-27 09:35] LABS: Free T4 Free Thyroxine < 0.10 ng/dL (0.82-1.77); T3 Free < 0.4 PG/ML (2.0-4.4)
[2023-03-27] MEDS: aspirin 81 mg EC Tablet PO (09:46)
--- NOTE | 2023-03-27 09:50 | PC.NURSE ---
Patient arrived from [facility] via wheelchair. Vital signs are all stable and nurse will monitor q15m. TR band in place right radial.
[2023-03-27] MEDS: ALPRAZolam 0.5 mg Tablet 0.25 MG PO (11:27)
--- NOTE | 2023-03-27 12:54 | PM.TDS ---
Transfer Summary Providers Date of Admission: 03/27/23 01:39 Date of Discharge/Transfer: 03/27/23 Attending Provider at Admission: Janice Carlin MD Attending Provider at Transfer: Sourav Do MD Transfer Plans: Anticipated date of transfer: 03/27/23. Diagnoses at Discharge Discharge Diagnosis (1) Non-ST elevation MS (NSTEMI): Status: Acute (2) Tobacco abuse: Status: Acute (3) Coronary artery disease: Status: Acute Reason for Visit Reason for Visit CP Hospital Course Hospital Course Renaldo Lawson is a 68 year old male with past medical history of NSTEMI, coronary artery disease who presented to the hospital today for complaint of chest pain. Is a 68-year-old male, who presented to [facility] for chest pain, NSTEMI, 6-hour troponin of 241, delta 180.4, echocardiogram showed EF of 50 to 55%, initial EKG showed no acute ST-T wave changes mild to moderate hypokinesia of the inferior wall, mildly hypokinetic right ventricle, management aspirin, statin, therapeutic Lovenox, cardiology was consulted, underwent coronary angiography, findings of multivessel CAD, cardiology recommended transfer for open heart surgery. After discussing the risk and benefits of transfer, patient voiced her setting, all questions answered, agreed to proceed patient will be transferred to [facility], for plans on CABG. during my examination on 03/27/2023, patient after his procedure remained chest pain-free, surrounded by family members Patient is a smoker, advised to quit smoking Triglycerides are 222, cholesterol 338, LDL of 246 Patient was also found to have a TSH of 91.83, with a free T4 of less than 0.1, no free T3 of 0.4. Denies a history of hypothyroidism, given his CAD as above, after speaking with cardiology, decision was made to not pursue IV levothyroxine due to risks of CAD and tachyarrhythmias. He has no significant symptoms of myxedema coma. I am going to start him on low-dose levothyroxine 25 mcg once daily, have held off on Cytomel, check daily TSH, free T4, free T3. If indeed patient undergo surgical intervention will likely require stress dose steroids. I did not get a chance to speak to hospitalist taking over patient care, I have had nursing staff communicate my concerns patient severe hypothyroidism to team taking care of him at [facility]. I have also provided my number if there is any questions or concerns ? Physical Exam Const: COMMON NORMALS: no acute distress and patient oriented x3 Resp: COMMON NORMALS: normal respiratory effort, No retractions, No use of accessory muscles and clear to auscultation bilaterally AUSCULTATION: clear to auscultation bilaterally Cardio: COMMON NORMALS: regular rate, regular rhythm, S1 normal heart sound present and S2 normal heart sound present RATE: regular rate RHYTHM: regular rhythm HEART SOUNDS: S1 normal heart sound present and S2 normal heart sound present GI: COMMON NORMALS: Normal to inspection, nondistended, normoactive bowel sounds present and non-tender Extremity: COMMON NORMALS: no pedal edema Neuro: COMMON NORMALS: patient oriented x3 Psych: COMMON NORMALS: mental status grossly normal TS Data Studies Completed and Pending Pending at discharge Category Date Time Status [employer] request for service Routine Exams 03/27/23 07:30 Taken Complete Blood Count w/Auto AM LABS Lab 03/28/23 04:00 Ordered Comprehensive Metabolic Panel AM LABS Lab 03/28/23 04:00 Ordered Free T4 Free Thyroxine AM LABS Lab 03/28/23 04:00 Ordered Free T4 Free Thyroxine AM LABS Lab 03/29/23 04:00 Ordered Free T4 Free Thyroxine AM LABS Lab 03/30/23 04:00 Ordered Magnesium AM LABS Lab 03/28/23 04:00 Ordered T3 Free AM LABS Lab 03/28/23 04:00 Ordered T3 Free AM LABS Lab 03/29/23 04:00 Ordered T3 Free AM LABS Lab 03/30/23 04:00 Ordered TSH [Thyroid Stimulating Hormone] AM LABS Lab 03/28/23 04:00 Ordered TSH [Thyroid Stimulating Hormone] AM LABS Lab 03/29/23 04:00 Ordered TSH [Thyroid Stimulating Hormone] AM LABS Lab 03/30/23 04:00 Ordered Labs from last 24 hours 03/27/23 03/27/23 03/27/23 05:02 01:38 01:38 WBC RBC Hgb Hct MCV MCH MCHC RDW Plt Count MPV Neut % (Auto) Lymph % (Auto) Iron % (Auto) Eos % (Auto) Baso % (Auto) Neut # (Auto) Lymph # (Auto) Iron # (Auto) Eos # (Auto) Baso # (Auto) Nucleated RBC % (auto) Nucleated RBCs # Sodium Potassium Chloride Carbon Dioxide Anion Gap BUN Creatinine GFR Calculation Glucose Estimat Average Glucose Hemoglobin A1c Calculated Osmolality Calcium Total Bilirubin AST ALT Alkaline Phosphatase Troponin T Baseline Troponin T 120 Minute Delta Troponin T Troponin T Hi Sens 6Hr 241.4 H Troponin T Hi Sens 6Hr Delta 180.4 H* NT-Pro-B Natriuret Pep 70 Total Protein Albumin Globulin Triglycerides 222 H Cholesterol 338 H LDL Cholesterol, Calc 246 H HDL Cholesterol 48 L LDL/HDL Ratio 5.13 H Cholesterol/HDL Ratio 7.04 H Lipase TSH 91.83 H Free T4 < 0.10 L Free T3 < 0.4 L 03/27/23 03/27/23 03/26/23 01:38 00:51 22:50 WBC RBC Hgb Hct MCV MCH MCHC RDW Plt Count MPV Neut % (Auto) Lymph % (Auto) Iron % (Auto) Eos % (Auto) Baso % (Auto) Neut # (Auto) Lymph # (Auto) Iron # (Auto) Eos # (Auto) Baso # (Auto) Nucleated RBC % (auto) Nucleated RBCs # Sodium Potassium Chloride Carbon Dioxide Anion Gap BUN Creatinine GFR Calculation Glucose Estimat Average Glucose 120 Hemoglobin A1c 5.8 Calculated Osmolality Calcium Total Bilirubin AST ALT Alkaline Phosphatase Troponin T Baseline Troponin T 120 Minute 286.4 H Cancelled Delta Troponin T 225.4 H* Cancelled Troponin T Hi Sens 6Hr Troponin T Hi Sens 6Hr Delta NT-Pro-B Natriuret Pep Total Protein Albumin Globulin Triglycerides Cholesterol LDL Cholesterol, Calc HDL Cholesterol LDL/HDL Ratio Cholesterol/HDL Ratio Lipase TSH Free T4 Free T3 03/26/23 03/26/23 03/26/23 22:50 22:50 22:50 WBC 6.3 RBC 4.26 Hgb 14.5 Hct 41.4 L MCV 97.2 H MCH 34.0 MCHC 35.0 RDW 16.7 H Plt Count 225 MPV 10.9 H Neut % (Auto) 44.1 Lymph % (Auto) 37.3 Iron % (Auto) 9.5 Eos % (Auto) 6.0 Baso % (Auto) 2.2 Neut # (Auto) 2.78 Lymph # (Auto) 2.4 Iron # (Auto) 0.6 Eos # (Auto) 0.4 Baso # (Auto) 0.1 Nucleated RBC % (auto) 0 Nucleated RBCs # 0.0 Sodium 136 Potassium 4.0 Chloride 97 L Carbon Dioxide 27 Anion Gap 16.0 BUN 14 Creatinine 1.2 GFR Calculation 60.6 L Glucose 94 Estimat Average Glucose Hemoglobin A1c Calculated Osmolality 282 L Calcium 10.0 Total Bilirubin 0.4 AST 53 H ALT 48 H Alkaline Phosphatase 61 Troponin T Baseline 61 H Troponin T 120 Minute Delta Troponin T Troponin T Hi Sens 6Hr Troponin T Hi Sens 6Hr Delta NT-Pro-B Natriuret Pep 51 Total Protein 7.4 Albumin 5.0 Globulin 2.4 Triglycerides Cholesterol LDL Cholesterol, Calc HDL Cholesterol LDL/HDL Ratio Cholesterol/HDL Ratio Lipase 20 TSH Free T4 Free T3 Completed Studies During Hospitalization Category Date Time Status XR chest 1V portable [id number] Stat Exams 03/26/23 23:30 Completed CV. echo complete* [id number] Urgent Ultrasound 03/27/23 02:33 Completed Laboratory Last Values WBC 6.3 10^3/uL (4.0-10.0) 03/26/23 22:50 RBC 4.26 10^6/uL (4.1-5.3) 03/26/23 22:50 Hgb 14.5 g/dL (11.7-16.6) 03/26/23 22:50 Hct 41.4 % (42.0-52.0) L 03/26/23 22:50 MCV 97.2 fl (80-94) H 03/26/23 22:50 MCH 34.0 pg (28.0-34.0) 03/26/23 22:50 MCHC 35.0 g/dL (30.0-36.0) 03/26/23 22:50 RDW 16.7 % (12.1-15.1) H 03/26/23 22:50 Plt Count 225 10^3/cmm (130-400) 03/26/23 22:50 MPV 10.9 fL (7.4-10.4) H 03/26/23 22:50 Neut % (Auto) 44.1 % 03/26/23 22:50 Lymph % (Auto) 37.3 % 03/26/23 22:50 Iron % (Auto) 9.5 % 03/26/23 22:50 Eos % (Auto) 6.0 % 03/26/23 22:50 Baso % (Auto) 2.2 % 03/26/23 22:50 Neut # (Auto) 2.78 10^3/uL (1.8-7.7) 03/26/23 22:50 Lymph # (Auto) 2.4 10^3/uL (0.8-4.8) 03/26/23 22:50 Iron # (Auto) 0.6 10^3/uL (0.2-0.9) 03/26/23 22:50 Eos # (Auto) 0.4 10^3/uL (0.0-0.8) 03/26/23 22:50 Baso # (Auto) 0.1 10^3/uL (0.0-0.1) 03/26/23 22:50 Nucleated RBC % (auto) 0 % 03/26/23 22:50 Nucleated RBCs # 0.0 /100WBC 03/26/23 22:50 Sodium 136 mmol/L (136-145) 03/26/23 22:50 Potassium 4.0 mmol/L (3.5-5.1) 03/26/23 22:50 Chloride 97 mmol/L (98-107) L 03/26/23 22:50 Carbon Dioxide 27 mmol/L (22-29) 03/26/23 22:50 Anion Gap 16.0 (5-19) 03/26/23 22:50 BUN 14 mg/dL (8-23) 03/26/23 22:50 Creatinine 1.2 mg/dL (0.7-1.2) 03/26/23 22:50 GFR Calculation 60.6 mL/min (90-130) L 03/26/23 22:50 Glucose 94 mg/dL (65-115) 03/26/23 22:50 Estimat Average Glucose 120 03/26/23 22:50 Hemoglobin A1c 5.8 % (4.0-6.0) 03/26/23 22:50 Calculated Osmolality 282 mOsm/kg (285-295) L 03/26/23 22:50 Calcium 10.0 mg/dL (8.5-10.5) 03/26/23 22:50 Total Bilirubin 0.4 mg/dL (0.15-1.2) 03/26/23 22:50 AST 53 U/L (0-40) H 03/26/23 22:50 ALT 48 U/L (0-41) H 03/26/23 22:50 Alkaline Phosphatase 61 U/L (40-130) 03/26/23 22:50 Troponin T Baseline 61 ng/L (0-15) H 03/26/23 22:50 Troponin T 120 Minute 286.4 ng/L (0-15) H 03/27/23 01:38 Delta Troponin T 225.4 ABS# (0-10) H* 03/27/23 01:38 Troponin T Hi Sens 6Hr 241.4 ng/L (0-15) H 03/27/23 05:02 Troponin T Hi Sens 6Hr Delta 180.4 ng/L (0-12) H* 03/27/23 05:02 NT-Pro-B Natriuret Pep 70 pg/mL (0-125) 03/27/23 01:38 Total Protein 7.4 g/dL (6.6-8.7) 03/26/23 22:50 Albumin 5.0 g/dL (3.5-5.2) 03/26/23 22:50 Globulin 2.4 g/dL (1.3-4.6) 03/26/23 22:50 Triglycerides 222 mg/dL (0-150) H 03/27/23 01:38 Cholesterol 338 mg/dL (0-200) H 03/27/23 01:38 LDL Cholesterol, Calc 246 mg/dL (50-129) H 03/27/23 01:38 HDL Cholesterol 48 mg/dL (60-100) L 03/27/23 01:38 LDL/HDL Ratio 5.13 RATIO (0.00-3.22) H 03/27/23 01:38 Cholesterol/HDL Ratio 7.04 mg/dL (1.0-5.00) H 03/27/23 01:38 Lipase 20 U/L (13-60) 03/26/23 22:50 TSH 91.83 uIU/mL (0.27-4.20) H 03/27/23 01:38 Free T4 < 0.10 ng/dL (0.82-1.77) L 03/27/23 01:38 Free T3 < 0.4 PG/ML (2.0-4.4) L 03/27/23 01:38 Radiology Impressions Chest X-Ray 03/26/23 23:30 IMPRESSION: Stable COPD . Recent Clincial Data Last Vital Signs Temp 98.0 F 03/26/23 23:22 Pulse 56 L 03/27/23 10:00 Resp 14 03/27/23 10:00 BP 111/76 03/27/23 10:00 Pulse Ox 92 03/27/23 08:00 O2 Del Method Room Air 03/27/23 08:00 Vital Signs Pulse Resp BP Pulse Ox O2 Del Method O2 Del Method 03/27/23 08:00 50 L 92 Room Air 03/27/23 10:00 56 L 14 111/76 03/27/23 09:45 61 13 107/80 03/27/23 09:30 56 L 14 103/71 03/27/23 09:15 60 11 L 89/62 03/27/23 09:00 61 12 108/70 03/27/23 08:45 61 15 03/27/23 08:42 63 16 03/27/23 08:00 102/76 03/27/23 07:45 102/76 03/27/23 07:30 102/76 94 03/27/23 07:15 110/77 95 03/27/23 07:00 110/79 95 03/27/23 06:45 111/74 95 03/27/23 06:30 53 L 105/75 96 03/27/23 06:15 57 L 10 L 100/71 95 03/27/23 06:00 57 L 13 107/76 95 03/27/23 05:45 57 L 11 L 108/79 95 03/27/23 05:30 61 14 110/76 97 03/27/23 05:15 53 L 13 89/55 93 03/27/23 04:45 57 L 17 99/71 96 03/27/23 04:15 59 L 11 L 106/72 96 03/27/23 03:45 52 L 12 83/57 03/27/23 03:15 106/67 93 03/27/23 02:45 63 22 H 112/86 94 03/27/23 05:00 61 19 H 109/74 93 03/27/23 04:30 57 L 13 98/69 96 03/27/23 04:00 57 L 10 L 93 03/27/23 03:30 59 L 106/67 92 03/27/23 03:00 95 112/86 94 03/27/23 02:30 57 L 16 120/74 92 03/27/23 02:17 55 L 15 103/74 95 Room Air Intake & Output/Weight 03/25/23 03/26/23 03/27/23 03/28/23 06:59 06:59 06:59 06:59 Weight 63.503 kg Vitals Last Vital Signs Temp 98.0 F 03/26/23 23:22 Pulse 56 L 03/27/23 10:00 Resp 14 03/27/23 10:00 BP 111/76 03/27/23 10:00 Pulse Ox 92 03/27/23 08:00 O2 Del Method Room Air 03/27/23 08:00 TS Medications Medications Acetaminophen (Acetaminophen 325 Mg Tablet) 650 mg PO Q6H PRN PRN Reason: Mild/Mod Pain Or Temp >/= 101 Alprazolam (Alprazolam 0.5 Mg Tablet) 0.25 mg PO Q24H PRN PRN Reason: ANXIETY Last Admin: 03/27/23 11:27 Dose: 0.25 mg Aspirin (Aspirin 81 Mg Ec Tablet) 81 mg PO DAILY [facility] Last Admin: 03/27/23 09:46 Dose: 81 mg Atorvastatin Calcium (Atorvastatin 40 Mg Tablet) 80 mg PO DAILY [facility] Last Admin: 03/27/23 09:46 Dose: 80 mg Enoxaparin Sodium (Enoxaparin 60 Mg/0.6 Ml Syringe) 60 mg SUBCUT Q12H [facility] Sodium Chloride (Sodium Chloride 0.9%) 1,000 mls @ 75 mls/hr IV .[id number] [facility] Last Admin: 03/27/23 04:00 Dose: 75 mls/hr Levothyroxine Sodium (Levothyroxine 25 Mcg Tablet) 25 mcg PO QAM [facility] Ondansetron HCl (Ondansetron 2 Mg/Ml Sdv 2 Ml) 4 mg IVP Q8H PRN PRN Reason: vomiting, or N/V if npo Discontinued Medications Alprazolam (Alprazolam 0.5 Mg Tablet) 0.25 mg PO Q24H [facility] Clopidogrel Bisulfate (Clopidogrel 75 Mg Tablet) 75 mg PO DAILY [facility] Enoxaparin Sodium (Enoxaparin 60 Mg/0.6 Ml Syringe) 60 mg SUBCUT ONCE ONE Stop: 03/27/23 01:39 Last Admin: 03/27/23 02:11 Dose: 60 mg Fentanyl (Fentanyl 50 Mcg/Ml Inj 2ml) Confirm Administered Dose 100 mcg .ROUTE .STK-MED ONE Stop: 03/27/23 07:32 Heparin Sodium (Porcine) (Heparin 5,000 Unit/Ml Inj 1 Ml) Confirm Administered Dose 5,000 unit .ROUTE .STK-MED ONE Stop: 03/27/23 07:33 Heparin Sodium (Porcine) (Heparin 5,000 Unit/Ml Inj 1 Ml) Confirm Administered Dose 5,000 unit .ROUTE .STK-MED ONE Stop: 03/27/23 08:08 Lidocaine HCl (Xylocaine) Confirm Administered Dose 4 mls @ as directed .ROUTE .STK-MED ONE Stop: 03/27/23 07:33 Sodium Chloride (Sodium Chloride 0.9%) Confirm Administered Dose 1,000 mls @ as directed .ROUTE .STK-MED ONE Stop: 03/27/23 07:52 Midazolam HCl (Midazolam 1 Mg/Ml Inj 2 Ml) Confirm Administered Dose 2 mg .ROUTE .STK-MED ONE Stop: 03/27/23 07:32 Nitroglycerin (Nitroglycerin 5 Mg/Ml Sdv 10 Ml) Confirm Administered Dose 50 mg .ROUTE .STK-MED ONE Stop: 03/27/23 07:32 Allergies No Known Allergies Allergy (Verified 03/27/23 07:21) Home Medications aspirin 81 mg tablet,delayed release 81 mg PO DAILY 03/27/23 [History Confirmed 03/27/23] Discharge Plan Discharge Condition: Stable Prescriptions: No Action Aspir-81 81 mg Tablet,Delayed Release (Dr/Ec) 81 mg PO DAILY Discharge Orders: Transfer Out of Facility (Order); Ordered 03/27/23 Ordered By: Sourav Do Referrals: Mansoor Sanabria M.D [Physician] - (Your Dr. Sanabria follow up appointment will be scheduled while you are at your Radha Pickett appointment. Thank you.) Radha Pickett FNP [Nurse Practitioner] - 04/07/23 10:30 am Patient Instructions: Coronary Artery Disease (DC), Coronary Angioplasty (DC), Opioid Safety, Post Angiogram Home Care Instructions, Post Heart Attack Stoplight Transfer Attestations Time Spent in Transfer Care: greater than 30 min Quality Metrics Clinical Quality Measures [ Acute Myocardial Infaction { Clinical Trial Participant: No; Contraindication to aspirin: None; Aspirin prescribed; Contraindication to statin: None; Statin prescribed; Contraindication to PCI: None; PCI performed;}] Coding Level of Care Code 69403 Total time (in minutes) for Discharge: 45 Diagnoses Non-ST elevation MS (NSTEMI) I21.4 Tobacco abuse Z72.0 Coronary artery disease I25.10
--- NOTE | 2023-03-27 13:13 | PC.NURSE ---
Patient is being transferred to [facility] for possible triple bipass. Report was called to Corrie Avalos RN. Patient is awaiting Ambulance Transport. [facility] has been called. TR band has been removed, dressing is in place. Nurse will continue to monitor.
--- NOTE | 2023-03-27 18:15 | PC.NURSE ---
Patient left via [facility] to be transferred to [facility]> Patient VS stable upon departure, family aware and all belongings were sent with patient.
== END 2023-03-27 18:17 | disposition short-term general hospital (02) | DRG 281 ==
LOC: ER 03-27 02:28 → ER IP 03-27 02:31 → CSU 03-27 08:58
PROVIDERS: Internal Medicine; Admitting Provider Internal Medicine; Emergency Provider Emergency Medicine; Visit Provider Family Medicine
PROC: 4A023N7 Measurement of Cardiac Sampling and Pressure, Left Heart, Percutaneous Approach (ICD-10-PCS; principal; 2023-03-27 07:45)
DX: I21.4 Non-ST elevation (NSTEMI) myocardial infarction (principal); I50.20 Unspecified systolic (congestive) heart failure; I25.119 Atherosclerotic heart disease of native coronary artery with unspecified angina pectoris; I25.2 Old myocardial infarction; F17.210 Nicotine dependence, cigarettes, uncomplicated; E03.9 Hypothyroidism, unspecified; Z79.82 Long term (current) use of aspirin
CPT/HCPCS: 36415; 71045; 80053; 80061; 83036; 83690; 83880; 84439; 84443; 84481; 84484; 85025; 93005; 93306; 93458; 96372; 99152; 99285; C1769; C1887; C1894; J1644; J1650; J2250; J3010; J3490; J7030; Q9967

== ENCOUNTER → 2024-06-29 15:08 | Outpatient (BNVA) | payer MEDICARE, MEDICAID, SELFPAY | PROVIDERS: PCP Family Medicine; Visit Provider Internal Medicine | DX: I25.10 Atherosclerotic heart disease of native coronary artery without angina pectoris (principal); Z72.0 Tobacco use; I25.2 Old myocardial infarction | CPT/HCPCS: 99214 ==

== ENCOUNTER 2024-07-20 08:31 | Outpatient (CLI) | payer MEDICARE, MEDICAID, SELFPAY ==
--- NOTE | 2024-07-20 08:38 | USCV_ITS ---
Renaldo Lawson Age: 69 Gender: M : 1955 Exam Date: 07/20/2024 09:40 Ordering Phys: Murtaza Wall MD Technologist: CT Exam Location: [facility]_ Indication: BP: 124 / 72 HR: 64 Rhythm: Sinus Technical Quality: Adequate MEASUREMENTS (Male / Female) Normal Values 2D ECHO LVOT Diameter 2.0 cm LV Ejection Fraction MOD 4C 55.7 % LV Ejection Fraction MOD 2C 64.6 % LV Ejection Fraction 2C AL 64.4 % LA Diameter 2.4 cm RA Systolic Volume 4C AL 39.1 ml RA Systolic Volume 4C MOD 37.3 ml LA Sys Volume AL 27.5 cm cubed LA Sys Volume Index AL 16.4 cm cubed/m squared Aorta at Sinotubular Diameter 2.2 cm M-MODE LA Ao Ratio MM 1.3 AV Cusp Separation MM 1.9 cm DOPPLER AV Peak Velocity 107.0 cm/s LVOT Peak Velocity 65.0 cm/s AV Area Cont Eq vti 1.9 cm squared AV Area Cont Eq pk 2.0 cm squared MV Peak Velocity 88.0 cm/s MV Area PHT 4.1 cm squared Mitral E to A Ratio 1.6 TV Peak Velocity 182.7 cm/s TR Peak Velocity 229.0 cm/s TR Peak Gradient 21.0 mmHg TV Peak E Velocity 56.0 cm/s Right Atrial Pressure 3.0 mmHg Pulmonary Artery Systolic Pressu 24.0 mmHg PV Peak Velocity 99.5 cm/s FINDINGS Left Ventricle Normal left ventricular size, systolic function and wall thickness, with no regional wall motion abnormalities. Estimated LVEF normal 60%. Right Ventricle Normal right ventricular size and systolic function. Right Atrium Normal right atrial size. Left Atrium Normal left atrial size. Mitral Valve Mildly thickened mitral valve. Mild mitral valve regurgitation. Aortic Valve Mildly thickened aortic valve.no aortic valve stenosis. No aortic valve regurgitation. Tricuspid Valve Structurally normal tricuspid valve. Trace tricuspid valve regurgitation. Pulmonic Valve Structurally normal pulmonic valve. Trace pulmonary valve regurgitation. Pericardium No pericardial effusion. Aorta Normal size aortic root and proximal ascending aorta. IVC Normal inferior vena cava. CONCLUSIONS Normal LV systolic function. LVEF normal 60%. No significant valvular abnormality noted. Normal chamber sizes. Normal right heart and pulmonary pressures. Lincoln Arevalo MD (Electronically Signed) Final Date: 20 July 2024 13:20 S
== END 2024-07-20 08:32 | disposition home or self-care (01) ==
LOC: RAD 08:32
PROVIDERS: PCP Family Medicine; Visit Provider Family Medicine
DX: I50.9 Heart failure, unspecified (principal)
CPT/HCPCS: 93306

== ENCOUNTER 2024-12-26 09:06 | Outpatient (CLI) | payer MEDICARE, MEDICAID, SELFPAY ==
--- NOTE | 2024-12-26 09:14 | CT_ITS ---
WS: [id number] LDCT LUNG CANCER SCREENING TECHNIQUE: Noncontrast CT of the chest with coronal and sagittal reformatted images. CLINICAL INFORMATION: HX OF TOBACCO USE COMPARISON: None. DLP: 51.31 mGy.cm DIvol: Mean CTDIvol: 0.90 (mGy) All CT scans at [facility] use at least one of these dose optimization techniques: automated exposure control; mA and/or kV adjustment per patient size (includes targeted exams where dose is matched to clinical indication); or iterative reconstruction. FINDINGS: Scattered tiny calcified granulomas. Few scattered bilateral micronodules. 4 mm noncalcified nodule in the lingula. No suspicious pulmonary parenchymal abnormalities. Sternotomy. Coronary bypass. Aortic calcification. Normal caliber thoracic aorta. No mediastinal or hilar lymphadenopathy. No axillary lymphadenopathy. Adrenal glands are normal. Mild thoracic curve. CT/CT lung screening [id number] IMPRESSION: LUNG-RADS: 2-Benign Appearance or Behavior FOLLOW UP: 12 Month: Continue annual screening with LDCT
== END 2024-12-26 09:07 | disposition home or self-care (01) ==
LOC: RAD 09:08
PROVIDERS: PCP Family Medicine; Visit Provider Family Medicine
DX: Z12.2 Encounter for screening for malignant neoplasm of respiratory organs (principal); Z87.891 Personal history of nicotine dependence; R91.8 Other nonspecific abnormal finding of lung field; Z98.890 Other specified postprocedural states; I70.0 Atherosclerosis of aorta; M43.8X6 Other specified deforming dorsopathies, lumbar region
CPT/HCPCS: 71271

== ENCOUNTER → 2024-12-28 10:37 | Outpatient (BNVA) | payer MEDICARE, MEDICAID, SELFPAY | PROVIDERS: PCP Family Medicine; Visit Provider Nurse Practitioner Family | DX: I25.10 Atherosclerotic heart disease of native coronary artery without angina pectoris (principal); Z09 Encounter for follow-up examination after completed treatment for conditions other than malignant neoplasm; Z95.1 Presence of aortocoronary bypass graft; E03.9 Hypothyroidism, unspecified; Z79.01 Long term (current) use of anticoagulants; Z79.82 Long term (current) use of aspirin; I25.2 Old myocardial infarction; Z87.891 Personal history of nicotine dependence | CPT/HCPCS: 99214 ==

== ENCOUNTER → 2025-06-26 11:48 | Outpatient (BNVA) | payer MEDICARE, MEDICAID, SELFPAY | PROVIDERS: PCP Family Medicine; Visit Provider Internal Medicine | DX: I25.10 Atherosclerotic heart disease of native coronary artery without angina pectoris (principal); I25.2 Old myocardial infarction; Z87.891 Personal history of nicotine dependence | CPT/HCPCS: 99213 ==